=== PATIENT | male | born 1935 | race Caucasian/White ===

== ENCOUNTER 2017-03-12 05:29 | Day surgery (SDC) | payer OTHER ==
[~2017-03-12] VITALS: Ht 175.3 cm; Wt 77.1 kg
--- NOTE | ~2017-03-12 | O ---
[facility] [place] [address] OPERATIVE REPORT Name: ANTONINA MO Room #: DEP [facility].#: [id number] Admission: 03/12/17 Attend Phys: Jesús Santoyo MD Discharge: 03/12/17 Date of : 31 Report #: [id number] THIS REPORT FOR: //name// CC: Paula Santoyo DATE OF SERVICE: 03/12/[address] Jesús Santoyo, Dr. Paula Pantoja. PREOPERATIVE DIAGNOSIS: Right inguinal hernia. POSTOPERATIVE DIAGNOSIS: Right inguinal hernia. PROCEDURE: Right inguinal hernia repair with Prolene hernia system mesh. SURGEON: Jesús Santoyo M.D. ANESTHESIA: Local IV sedation. DESCRIPTION OF PROCEDURE: The patient was brought to the operating room and placed on operative table in the supine position. Sequential compression devices were in place for DVT prophylaxis. There was no indication for preoperative antibiotics. The patient underwent IV sedation. The right inguinal area was prepped and draped in a sterile fashion. Skin and subcutaneous tissue was then infiltrated with 0.5% Marcaine and 1% Xylocaine in a 1:1 mixture. A right inguinal skin incision was then performed using #10 scalpel blade. Hemostasis obtained using electrocautery as well as clamps and 2-0 chromic ties. Dissection was carried down through subcutaneous tissue to the external oblique fascia, which was then incised with a knife and opened with the Metzenbaum scissors. The ilioinguinal nerve was identified, dissected free, injected with a local mixture and preserved. The cord was then elevated and held into place with a [place] drain. Cremasteric muscle fibers were then split in the direction of the fibers and the cord was inspected. There was no evidence of any indirect inguinal hernia sac. The floor was inspected and there was a large direct inguinal hernia defect. This hernia sac was dissected free and then the sac was incised just above the level of the fascia using the electrocautery and the hernia sac was then reduced through the floor into the preperitoneal space. An extended Prolene hernia system mesh was then inserted through the floor and the underlay patch was then deployed in the preperitoneal space. Connector was left in the floor and the floor was then tightened around the connector using running 2-0 Prolene two layer Shouldice repair. The overlay patch was then deployed into the inguinal canal. The mesh was secured at the pubic tubercle with the same running 2-0 Prolene suture. The mesh was then secured superiorly at the connector using simple interrupted 2-0 Vicryl sutures. [address] [address] OPERATIVE REPORT Name: ANTONINA MO [id number] Admission: 03/12/17 Attend Phys: Jesús Santoyo MD Discharge: 03/12/17 Date of : 31 Report #: [id number] The mesh was then split and wrapped around the cord and secured to the inguinal ligament with simple interrupted 2-0 Vicryl suture. The cord and ilioinguinal nerve were then returned to the canal intact. External oblique fascia was then closed using running 2-0 Vicryl suture. Kellen's fascia was then reapproximated using 3 simple interrupted 2-0 chromic sutures and the skin then closed with a running 4-0 subcuticular Vicryl stitch. The wound was then dressed with Mastisol, 1/2-inch Steri-Strips cut in half, Telfa, 4 x 4 gauze, sponge and tape. The patient was then taken to the recovery room awake, alert and in good condition. Estimated blood loss was approximately 5 mL, and the patient tolerated procedure well. All sponge, lap and instrument counts correct times 2. By: [id number] Jesús Santoyo MD /nt
[~2017-03-12 05:29] MED LIST: ACETAMINOPHEN650 M5 PO; ADULT LOW DOSE81 MG PO; AUGMENTIN 875875 MG PO; BREO ELLIPTA 11 EACH IH; CELEXA10 MG PO; DICLOFENAC SODI75 M2 PO; FELDENE20 MG PO; FLOMAX PO; LIPITOR10 MG PO; MELOXICAM7.5 MG; MELOXICAM7.5 MG PO; MOM PO; NEXIUM40 MG PO; NITROGLYCERIN0.4 MG SUBLING; PEPCID COMPLET1 EACH PO; PREVACID15 MG PO; TAMSULOSIN HCL0.4 MG PO; TRAVATAN Z5 ML OPHTHALMIC; TRUSOPT5 ML OP; TYLENOL325 MG PO; XALATAN2.5 ML OPHTHALMIC; XANAX 0.5 MG0.5 MG PO
[2017-03-12 11:50] VITALS: BP 178/90
[2017-03-12] MEDS ORDERED: NORCO 5-325 TA1 EACH PO (13:33)
[2017-03-12 13:40] VITALS: BP 178/90
== END 2017-03-12 14:30 | disposition home or self-care (01) ==
LOC: TBA 05:29 → OR 05:29 → 4E 12:49 → TBA 12:49 → OR 14:30
DX: K40.90 Unilateral inguinal hernia, without obstruction or gangrene, not specified as recurrent (principal); F32.9 Major depressive disorder, single episode, unspecified; F41.9 Anxiety disorder, unspecified; Z87.891 Personal history of nicotine dependence; J45.909 Unspecified asthma, uncomplicated; E78.00 Pure hypercholesterolemia, unspecified; M54.5 Low back pain; K21.9 Gastro-esophageal reflux disease without esophagitis; M19.90 Unspecified osteoarthritis, unspecified site; Z98.890 Other specified postprocedural states; N40.0 Benign prostatic hyperplasia without lower urinary tract symptoms; G45.8 Other transient cerebral ischemic attacks and related syndromes
CPT/HCPCS: 50010; 50101; 50386; 50417; 54111; 56524; 56525; 56526; 56528; 62110; 62850; 70005

== ENCOUNTER 2017-03-26 05:55 | Day surgery (SDC) | payer OTHER ==
[~2017-03-26] VITALS: Ht 175.3 cm; Wt 78.0 kg
--- NOTE | ~2017-03-26 | O ---
[facility] [place] [address] OPERATIVE REPORT Name: ANTONINA MO Room #: DEP [facility].#: [id number] Admission: 03/26/17 Attend Phys: Jesús Santoyo MD Discharge: 03/26/17 Date of : 31 Report #: [id number] THIS REPORT FOR: //name// CC: Paula Santoyo DATE OF SERVICE: 03/26/[address] Jesús Santoyo and Dr. Paula Pantoja. PREOPERATIVE DIAGNOSIS: Left inguinal hernia. POSTOPERATIVE DIAGNOSIS: Left inguinal hernia. PROCEDURE: Left inguinal hernia repair with Prolene hernia system mesh. SURGEON: Jesús Santoyo M.D. ANESTHESIA: Local IV sedation. DESCRIPTION OF PROCEDURE: The patient was brought to the operating room and placed on operative table in the supine position. Sequential compression devices were placed for DVT prophylaxis. There was no indication for preoperative antibiotics. The patient underwent IV sedation and left inguinal area was prepped and draped in a sterile fashion. Skin and subcutaneous tissue were then infiltrated with 0.5% Marcaine and 1% Xylocaine in a 1:1 mixture. Left inguinal skin incision was then performed using #10 scalpel blade. Hemostasis was obtained using electrocautery as well as clamps and 2-0 chromic ties. Dissection was carried down through subcutaneous tissue to the external oblique fascia, which was then incised with a knife and opened with the Metzenbaum scissors. The ilioinguinal nerve was identified, dissected free, injected with a local mixture and preserved. The cord was then elevated and held into place with a [place] drain. Cremasteric muscle fibers were then split in the direction of fibers using clamp and electrocautery. There was no indirect inguinal hernia sac. The floor was inspected, there was a [id number] sized direct inguinal hernia defect. Hernia sac was dissected free, incised and reduced back through the floor. An extended Prolene hernia system mesh was then inserted through the floor and the inlay patch was then deployed in the preperitoneal space. The floor was then tightened around the connector using running 2-0 Prolene two layer shouldice repair. The overlay patch was then deployed into the inguinal canal and secured to the pubic tubercle with the same running 2-0 Prolene suture. The mesh was also secured superiorly and at the connector using simple interrupted 2-0 Vicryl sutures. The mesh was split and wrapped around the cord, secured to the inguinal ligament with simple interrupted 2-0 Vicryl suture. The cord and ilioinguinal nerve were [facility] [address] [place] [address] OPERATIVE REPORT Name: ANTONINA MO Room #: DEP [facility].#: [id number] Admission: 03/26/17 Attend Phys: Jesús Santoyo MD Discharge: 03/26/17 Date of : 31 Report #: [id number] then returned to the canal intact. The external oblique fascia was then closed using running 2-0 Vicryl suture. Kellen's fascia was then reapproximated using 3 simple interrupted 2-0 chromic sutures and the skin then closed with a running 4-0 subcuticular Vicryl stitch. The wound was then dressed with Mastisol, 1/2-inch Steri-Strips cut in half, Telfa, 4 x 4 gauze, sponge and tape. The patient was then taken to the recovery room awake, alert and in good condition. Estimated blood loss was less than 5 mL and the patient tolerated procedure well. All sponge, lap and instrument counts were correct times 2. By: [id number] Jesús Santoyo MD /nt
[~2017-03-26 05:55] MED LIST changes: +NORCO 5-325 TA1 EACH PO
== END 2017-03-26 13:30 | disposition home or self-care (01) ==
LOC: TBA 05:55 → OR 05:55
DX: K40.90 Unilateral inguinal hernia, without obstruction or gangrene, not specified as recurrent (principal); F32.9 Major depressive disorder, single episode, unspecified; F41.9 Anxiety disorder, unspecified; Z87.891 Personal history of nicotine dependence; E78.00 Pure hypercholesterolemia, unspecified; K21.9 Gastro-esophageal reflux disease without esophagitis; Z90.49 Acquired absence of other specified parts of digestive tract; M19.90 Unspecified osteoarthritis, unspecified site; J45.909 Unspecified asthma, uncomplicated; N40.0 Benign prostatic hyperplasia without lower urinary tract symptoms; Z98.890 Other specified postprocedural states
CPT/HCPCS: 50010; 50101; 50386; 50417; 54111; 56524; 56525; 56526; 56528; 62110; 62850; 70005

== ENCOUNTER 2018-10-29 14:07 | Emergency (ER) | payer OTHER ==
[~2018-10-29] VITALS: Ht 175.3 cm; Wt 79.4 kg
[2018-10-29 15:19] VITALS: BP 160/94
== END 2018-10-29 15:20 | disposition home or self-care (01) ==
LOC: ER 14:07
DX: S01.81XA Laceration without foreign body of other part of head, initial encounter (principal); M54.9 Dorsalgia, unspecified; G89.29 Other chronic pain; K21.9 Gastro-esophageal reflux disease without esophagitis; M19.90 Unspecified osteoarthritis, unspecified site; E78.00 Pure hypercholesterolemia, unspecified; J45.909 Unspecified asthma, uncomplicated; F32.9 Major depressive disorder, single episode, unspecified; F41.9 Anxiety disorder, unspecified; N40.0 Benign prostatic hyperplasia without lower urinary tract symptoms; Z87.891 Personal history of nicotine dependence; W19.XXXA Unspecified fall, initial encounter; Y93.89 Activity, other specified; Y92.89 Other specified places as the place of occurrence of the external cause; Y99.8 Other external cause status

== ENCOUNTER 2020-12-26 16:14 | Emergency (ER) | payer OTHER ==
[~2020-12-26] VITALS: Ht 175.3 cm; Wt 79.4 kg
[2020-12-26 18:48] VITALS: BP 150/93
== END 2020-12-26 19:06 | disposition home or self-care (01) ==
LOC: ER 16:14
DX: M79.652 Pain in left thigh (principal); K21.9 Gastro-esophageal reflux disease without esophagitis; J45.909 Unspecified asthma, uncomplicated; Z90.49 Acquired absence of other specified parts of digestive tract; E78.5 Hyperlipidemia, unspecified; Z79.899 Other long term (current) drug therapy; Z87.891 Personal history of nicotine dependence; Z79.82 Long term (current) use of aspirin